=== PATIENT | female | born 1935 | race Hispanic/Latino ===

== ENCOUNTER → 2019-04-06 | Outpatient (CLI) | payer OTHER, MEDICARE ==
[~2019-04-06] VITALS: Ht 147.3 cm; Wt 60.8 kg
[~2019-04-06] MED LIST: ACET-2247 PO; ALBUHFA IH; AMLO5TAB9 PO; ASPI-555 PO; BUSP15 PO; HYDR12.54 PO; LEVO25TA9 PO; LOVA10TA2 PO; METO50TA18 PO; OMEP20TA2 PO; REGADENOSON 0.4 MG/5 ML PF SYG IVP SCH; VALS160T29 PO
== END | disposition home or self-care (01) ==
LOC: SHCH 08:46
PROVIDERS: ATTEND Internal Medicine Cardiovascular Disease
DX: I25.10 Atherosclerotic heart disease of native coronary artery without angina pectoris (principal); I51.7 Cardiomegaly
CPT/HCPCS: 75571

== ENCOUNTER → 2019-05-25 | Outpatient (CLI) | payer OTHER, MEDICARE ==
[~2019-05-25] VITALS: Ht 147.3 cm; Wt 60.8 kg
== END | disposition home or self-care (01) ==
LOC: SHCH 07:56
PROVIDERS: ATTEND Internal Medicine Cardiovascular Disease
DX: R07.9 Chest pain, unspecified (principal); I10 Essential (primary) hypertension
CPT/HCPCS: 78452; 93017; 96374; A9500 ×2; J2785

== ENCOUNTER → 2020-04-18 | Outpatient (CLI) | payer OTHER, MEDICARE ==
[~2020-04-18] MED LIST changes: -ASPI-555 PO; +ASPI-556 PO; +IOHEXOL-350 75 ML VIAL IV ONE; -REGADENOSON 0.4 MG/5 ML PF SYG IVP SCH
== END | disposition home or self-care (01) ==
LOC: RAH 07:36
PROVIDERS: ATTEND Internal Medicine Cardiovascular Disease
DX: I70.0 Atherosclerosis of aorta (principal); I25.10 Atherosclerotic heart disease of native coronary artery without angina pectoris; R07.89 Other chest pain
CPT/HCPCS: 75574; Q9967

== ENCOUNTER → 2022-05-06 | Outpatient (CLI) | payer OTHER, MEDICARE ==
[~2022-05-06] MED LIST changes: +AMLO-257 PO; -AMLO5TAB9 PO; -IOHEXOL-350 75 ML VIAL IV ONE
== END | disposition home or self-care (01) ==
LOC: SHCH 10:00
PROVIDERS: ATTEND Internal Medicine Cardiovascular Disease
DX: I87.2 Venous insufficiency (chronic) (peripheral) (principal)
CPT/HCPCS: 93970

== ENCOUNTER → 2025-10-02 | Outpatient (CLI) | payer OTHER, MEDICAID ==
[~2025-10-02] MED LIST changes: +IOHEXOL 350 MG/ML 100ML INFUS..BTL IV ONE
== END | disposition home or self-care (01) ==
LOC: RAH 08:45
PROVIDERS: ATTEND Internal Medicine Cardiovascular Disease
DX: R07.9 Chest pain, unspecified (principal); Z53.9 Procedure and treatment not carried out, unspecified reason
CPT/HCPCS: 75574; J3490; Q9967